=== PATIENT | male | born 1965 | race African-American/Black ===

== ENCOUNTER 2016-06-07 11:40 | Inpatient (IN) | payer OTHER ==
[2016-06-07] MEDS ORDERED: MENTHOL/PHENOL 1 EACH UD MM PRN (15:07)
[2016-06-07] MEDS ORDERED: NICOTINE POLACRILEX 4 MG GUM BUC PRN (15:07)
[2016-06-07] MEDS ORDERED: LOPERAMIDE HCL 2 MG CAPSULE PO PRN (15:07)
[2016-06-07] MEDS ORDERED: MAG HYDROX/AL HYDROX/SIMETH 30 ML UNIT-DOSE CUP PO PRN (15:07)
[2016-06-07] MEDS ORDERED: MAGNESIUM CITRATE 300 ML BOTTLE PO PRN (15:07)
[2016-06-07] MEDS ORDERED: guaiFENesin/D-METHORPHAN HB 10 ML UNIT-DOSE CUPS PO PRN (15:07)
[2016-06-07] MEDS ORDERED: MAGNESIUM HYDROX 2400MG/30ML ORAL SUSPENSION 30 ML CUP PO PRN (15:07)
[2016-06-07] MEDS ORDERED: ACETAMINOPHEN 325 MG TABLET (FP) PO PRN (15:07)
[2016-06-07] MEDS ORDERED: P-EPHED 60MG/TRIPROLIDI 2.5MG TABLET PO PRN (15:07)
--- NOTE | 2016-06-07 16:12 | HP ---
[facility]GARD[facility] Rehab Assess/Revision - Admission History Admitted to Rehab from: [facility] Date of Admission to Rehab: 06/07/16 - Findings Detox History & Physical reviewed: Yes Concur with findings: Yes Comments/Additional Findings: TRANSFERRED FROM DETOX TO REHAB ADMISSION PER PROTOCOL
[2016-06-07] MEDS: diphenhydrAMINE HCL 50 MG CAPSULE PO PRN (22:02)
[2016-06-07] MEDS: THIAMINE HCL 100 MG TABLET (FP) PO SCH (22:02)
[2016-06-08] MEDS: PRENATAL VITAMINS W/ FOLIC ACID TABLET (FP) PO SCH (10:13)
[2016-06-08] MEDS: NICOTINE 21 MG/24 HOURS TOPICAL PATCH TD SCH (10:14)
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
[2016-06-08] MEDS: THIAMINE HCL 100 MG TABLET (FP) PO SCH (21:29)
[2016-06-08] MEDS: MIRTAZAPINE 15 MG TABLET (FP) PO SCH (21:30)
[2016-06-09] MEDS: NICOTINE 21 MG/24 HOURS TOPICAL PATCH TD SCH (10:34)
[2016-06-09] MEDS: PRENATAL VITAMINS W/ FOLIC ACID TABLET (FP) PO SCH (10:34)
[2016-06-09] MEDS: THIAMINE HCL 100 MG TABLET (FP) PO SCH (21:42)
[2016-06-09] MEDS: diphenhydrAMINE HCL 50 MG CAPSULE PO PRN (21:42)
[2016-06-09] MEDS: MIRTAZAPINE 15 MG TABLET (FP) PO SCH (21:43)
[2016-06-10] MEDS: NICOTINE 21 MG/24 HOURS TOPICAL PATCH TD SCH (10:32)
[2016-06-10] MEDS: PRENATAL VITAMINS W/ FOLIC ACID TABLET (FP) PO SCH (10:32)
[2016-06-10] MEDS: THIAMINE HCL 100 MG TABLET (FP) PO SCH (21:52)
[2016-06-10] MEDS: diphenhydrAMINE HCL 50 MG CAPSULE PO PRN (21:52)
[2016-06-10] MEDS: MIRTAZAPINE 15 MG TABLET (FP) PO SCH (21:53)
[2016-06-11] MEDS: PRENATAL VITAMINS W/ FOLIC ACID TABLET (FP) PO SCH (09:53)
[2016-06-11] MEDS: NICOTINE 21 MG/24 HOURS TOPICAL PATCH TD SCH (09:53)
[2016-06-11] MEDS: THIAMINE HCL 100 MG TABLET (FP) PO SCH (21:23)
[2016-06-11] MEDS: diphenhydrAMINE HCL 50 MG CAPSULE PO PRN (21:23)
[2016-06-11] MEDS: MIRTAZAPINE 15 MG TABLET (FP) PO SCH (21:23)
[2016-06-12] MEDS: PRENATAL VITAMINS W/ FOLIC ACID TABLET (FP) PO SCH (10:15)
[2016-06-12] MEDS: NICOTINE 21 MG/24 HOURS TOPICAL PATCH TD SCH (10:16)
[2016-06-12] MEDS: MIRTAZAPINE 15 MG TABLET (FP) PO SCH (21:52)
[2016-06-12] MEDS: diphenhydrAMINE HCL 50 MG CAPSULE PO PRN (21:52)
[2016-06-12] MEDS: THIAMINE HCL 100 MG TABLET (FP) PO SCH (21:52)
[2016-06-13] MEDS: PRENATAL VITAMINS W/ FOLIC ACID TABLET (FP) PO SCH (10:39)
[2016-06-13] MEDS: NICOTINE 21 MG/24 HOURS TOPICAL PATCH TD SCH (10:39)
[2016-06-13] MEDS: MIRTAZAPINE 15 MG TABLET (FP) PO SCH (22:12)
[2016-06-13] MEDS: THIAMINE HCL 100 MG TABLET (FP) PO SCH (22:13)
[2016-06-13] MEDS: diphenhydrAMINE HCL 50 MG CAPSULE PO PRN (22:13)
[2016-06-14] MEDS: PRENATAL VITAMINS W/ FOLIC ACID TABLET (FP) PO SCH (10:02)
[2016-06-14] MEDS: NICOTINE 21 MG/24 HOURS TOPICAL PATCH TD SCH (10:03)
[2016-06-14] MEDS: diphenhydrAMINE HCL 50 MG CAPSULE PO PRN (21:45)
[2016-06-14] MEDS: THIAMINE HCL 100 MG TABLET (FP) PO SCH (21:45)
[2016-06-14] MEDS: MIRTAZAPINE 15 MG TABLET (FP) PO SCH (21:46)
[2016-06-15] MEDS: NICOTINE 21 MG/24 HOURS TOPICAL PATCH TD SCH (10:11)
[2016-06-15] MEDS: PRENATAL VITAMINS W/ FOLIC ACID TABLET (FP) PO SCH (10:11)
[2016-06-15] MEDS: THIAMINE HCL 100 MG TABLET (FP) PO SCH (21:35)
[2016-06-15] MEDS: MIRTAZAPINE 15 MG TABLET (FP) PO SCH (21:35)
[2016-06-15] MEDS: diphenhydrAMINE HCL 50 MG CAPSULE PO PRN (21:36)
[2016-06-16] MEDS: NICOTINE 21 MG/24 HOURS TOPICAL PATCH TD SCH (11:17)
[2016-06-16] MEDS: PRENATAL VITAMINS W/ FOLIC ACID TABLET (FP) PO SCH (11:17)
[2016-06-16] MEDS: diphenhydrAMINE HCL 50 MG CAPSULE PO PRN (21:21)
[2016-06-16] MEDS: MIRTAZAPINE 15 MG TABLET (FP) PO SCH (21:21)
[2016-06-16] MEDS: THIAMINE HCL 100 MG TABLET (FP) PO SCH (21:21)
[2016-06-16] MEDS: IBUPROFEN 400 MG TABLET (FP) PO PRN (21:22)
[2016-06-17] MEDS: NICOTINE 21 MG/24 HOURS TOPICAL PATCH TD SCH (09:55)
[2016-06-17] MEDS: PRENATAL VITAMINS W/ FOLIC ACID TABLET (FP) PO SCH (09:55)
[2016-06-17] MEDS: diphenhydrAMINE HCL 50 MG CAPSULE PO PRN (21:42)
[2016-06-17] MEDS: THIAMINE HCL 100 MG TABLET (FP) PO SCH (21:42)
[2016-06-17] MEDS: MIRTAZAPINE 15 MG TABLET (FP) PO SCH (21:42)
[2016-06-18] MEDS: PRENATAL VITAMINS W/ FOLIC ACID TABLET (FP) PO SCH (10:00)
[2016-06-18] MEDS: NICOTINE 21 MG/24 HOURS TOPICAL PATCH TD SCH (10:00)
[2016-06-18] MEDS: THIAMINE HCL 100 MG TABLET (FP) PO SCH (21:38)
[2016-06-18] MEDS: MIRTAZAPINE 15 MG TABLET (FP) PO SCH (21:38)
[2016-06-18] MEDS: diphenhydrAMINE HCL 50 MG CAPSULE PO PRN (21:38)
[2016-06-19] MEDS: NICOTINE 21 MG/24 HOURS TOPICAL PATCH TD SCH (10:19)
[2016-06-19] MEDS: PRENATAL VITAMINS W/ FOLIC ACID TABLET (FP) PO SCH (10:19)
[2016-06-19] MEDS: MIRTAZAPINE 15 MG TABLET (FP) PO SCH (21:49)
[2016-06-19] MEDS: THIAMINE HCL 100 MG TABLET (FP) PO SCH (21:49)
[2016-06-19] MEDS: diphenhydrAMINE HCL 50 MG CAPSULE PO PRN (21:49)
[2016-06-20] MEDS: PRENATAL VITAMINS W/ FOLIC ACID TABLET (FP) PO SCH (10:16)
[2016-06-20] MEDS: NICOTINE 21 MG/24 HOURS TOPICAL PATCH TD SCH (10:16)
[2016-06-20] MEDS: MIRTAZAPINE 15 MG TABLET (FP) PO SCH (21:12)
[2016-06-20] MEDS: diphenhydrAMINE HCL 50 MG CAPSULE PO PRN (21:12)
[2016-06-20] MEDS: THIAMINE HCL 100 MG TABLET (FP) PO SCH (21:12)
[2016-06-21] MEDS: NICOTINE 21 MG/24 HOURS TOPICAL PATCH TD SCH (10:13)
[2016-06-21] MEDS: PRENATAL VITAMINS W/ FOLIC ACID TABLET (FP) PO SCH (10:13)
[2016-06-21] MEDS: THIAMINE HCL 100 MG TABLET (FP) PO SCH (21:15)
[2016-06-21] MEDS: MIRTAZAPINE 15 MG TABLET (FP) PO SCH (21:15)
[2016-06-21] MEDS: diphenhydrAMINE HCL 50 MG CAPSULE PO PRN (21:16)
[2016-06-22] MEDS: NICOTINE 21 MG/24 HOURS TOPICAL PATCH TD SCH (10:04)
[2016-06-22] MEDS: PRENATAL VITAMINS W/ FOLIC ACID TABLET (FP) PO SCH (10:04)
[2016-06-22] MEDS: MIRTAZAPINE 15 MG TABLET (FP) PO SCH (21:19)
[2016-06-22] MEDS: THIAMINE HCL 100 MG TABLET (FP) PO SCH (21:20)
[2016-06-22] MEDS: diphenhydrAMINE HCL 50 MG CAPSULE PO PRN (21:20)
[2016-06-23] MEDS: PRENATAL VITAMINS W/ FOLIC ACID TABLET (FP) PO SCH (10:07)
[2016-06-23] MEDS: NICOTINE 21 MG/24 HOURS TOPICAL PATCH TD SCH (10:07)
[2016-06-23] MEDS: MIRTAZAPINE 15 MG TABLET (FP) PO SCH (21:24)
[2016-06-23] MEDS: diphenhydrAMINE HCL 50 MG CAPSULE PO PRN (21:24)
[2016-06-23] MEDS: THIAMINE HCL 100 MG TABLET (FP) PO SCH (21:24)
[2016-06-24] MEDS: PRENATAL VITAMINS W/ FOLIC ACID TABLET (FP) PO SCH (10:27)
[2016-06-24] MEDS: NICOTINE 21 MG/24 HOURS TOPICAL PATCH TD SCH (10:27)
[2016-06-24] MEDS: IBUPROFEN 400 MG TABLET (FP) PO PRN (12:27)
[2016-06-24] MEDS: MIRTAZAPINE 15 MG TABLET (FP) PO SCH (21:11)
[2016-06-24] MEDS: diphenhydrAMINE HCL 50 MG CAPSULE PO PRN (21:11)
[2016-06-24] MEDS: THIAMINE HCL 100 MG TABLET (FP) PO SCH (21:12)
[2016-06-25] MEDS: PRENATAL VITAMINS W/ FOLIC ACID TABLET (FP) PO SCH (10:00)
[2016-06-25] MEDS: NICOTINE 21 MG/24 HOURS TOPICAL PATCH TD SCH (10:00)
[2016-06-25] MEDS: diphenhydrAMINE HCL 50 MG CAPSULE PO PRN (21:25)
[2016-06-25] MEDS: MIRTAZAPINE 15 MG TABLET (FP) PO SCH (21:25)
[2016-06-25] MEDS: THIAMINE HCL 100 MG TABLET (FP) PO SCH (21:25)
[2016-06-26 07:54] VITALS: PULSE 82
[2016-06-26] MEDS: PRENATAL VITAMINS W/ FOLIC ACID TABLET (FP) PO SCH (10:14)
[2016-06-26] MEDS: NICOTINE 21 MG/24 HOURS TOPICAL PATCH TD SCH (10:14)
[2016-06-26] MEDS: diphenhydrAMINE HCL 50 MG CAPSULE PO PRN (21:50)
[2016-06-26] MEDS: THIAMINE HCL 100 MG TABLET (FP) PO SCH (21:50)
[2016-06-26] MEDS: MIRTAZAPINE 15 MG TABLET (FP) PO SCH (21:51)
[2016-06-27 08:12] VITALS: BP 123/88; TEMP 97.5
[2016-06-27] MEDS: PRENATAL VITAMINS W/ FOLIC ACID TABLET (FP) PO SCH (09:23)
[2016-06-27] MEDS: NICOTINE 21 MG/24 HOURS TOPICAL PATCH TD SCH (09:23)
--- NOTE | 2016-06-27 10:55 | PN ---
Psychiatric Progress Note Vital Signs: Vital Signs Period Temp Pulse Resp BP Sys/Vaughn Pulse Ox Last 24 Hr 97.5 F 82 18-18 123/88 Date of Session: 06/27/16 Chief Complaint:: Psychiatrist Discharge Note(Early discharge) HPI: Patient addressingAlcohol and Cannabis Dependence comorbid with Nicotine Dependence and Alcohol-Induced Sleep Disorder ROS: Legally blind Current Medications: Active Medications Generic Name Dose Route Start Last Admin Trade Name Freq PRN Reason Stop Dose Admin Acetaminophen 650 mg 06/07/16 15:07 Tylenol - PO Q4H PRN FEVER OR PAIN Al Hydroxide/Mg Hydroxide 30 ml 06/07/16 15:07 Mylanta Oral Suspension - PO Q6H PRN DYSPEPSIA Diphenhydramine HCl 50 mg 06/07/16 15:07 06/26/16 21:50 Benadryl - PO 50 mg HSMR1 PRN Administration FOR ITCHING Eucalyptus/Menthol/Phenol/Sorbitol 1 each 06/07/16 15:07 Cepastat Lozenge - MM Q4H PRN SORE THROAT Guaifenesin 10 ml 06/07/16 15:07 Robitussin Dm - PO Q6H PRN COUGH Ibuprofen 400 mg 06/07/16 15:07 06/24/16 12:27 Motrin - PO 400 mg Q6H PRN Administration PAIN Loperamide HCl 4 mg 06/07/16 15:07 Imodium - PO Q6H PRN DIARRHEA Magnesium Hydroxide 30 ml 06/07/16 15:07 Milk Of Magnesia - PO DAILY PRN CONSTIPATION Mirtazapine 15 mg 06/08/16 22:00 06/26/16 21:51 Remeron - PO 15 mg HS STEFANIE Administration Nicotine 21 mg 06/08/16 10:00 06/27/16 09:23 Nicoderm Patch - TD Not Given DAILY STEFANIE Nicotine Polacrilex 4 mg 06/07/16 15:07 Nicorette Gum - BUC Q2H PRN NICOTINE REPLACEMENT RX Multivit/Folic Acid/Iron 1 tab 06/08/16 10:00 06/27/16 09:23 Vitamins ([facility]) - PO 1 tab DAILY STEFANIE Administration Pseudoephedrine/Triprolidine 1 combo 06/07/16 15:07 Actifed - PO TID PRN NASAL CONGESTION Thiamine HCl 100 mg 06/07/16 22:00 03/06/17 21:50 Vitamin B1 - PO 100 mg HS STEFANIE Administration Current Side Effect: No Lab tests ordered: Yes Lab tests reviewed: Yes Provider note:: Patient has completed this program today. He has partially met his treatment goals and will continue to address his issues in outpatient treatment at [facility]. Told press writer that from his participation in this program, he has learned the importance of establising a sober network in order to maintain abstinence. He responded well to Remeron 15 mg po HS. Script for 30 days supply of that medicationis electronically transmitted to [facility] at [address] [place] [address]. He is stable for discharge today Total face to face time:: 35 Mental Status Exam - Mental Status Exam Alert and Oriented to: Time, Place, Person Cognitive Function: Fair Patient Appearance: Well Groomed Mood: Hopeful, Euthymic Affect: Appropriate Patient Behavior: Cooperative Speech Pattern: Clear Voice Loudness: Normal Thought Process: Intact Thought Disorder: Not Present Hallucinations: Denies Suicidal Ideation: Denies Homicidal Ideation: Denies Insight/Judgement: Fair Sleep: Fair Appetite: Good Muscle strength/Tone: Normal Gait/Station: Normal Psychiatric Treatment Plan - Problem List (1) Alcohol dependence Current Visit: Yes (2) Cannabis dependence, uncomplicated Current Visit: No (3) Nicotine dependence Current Visit: No Qualifiers: Nicotine product type: cigarettes Substance use status: uncomplicated Qualified Code(s): F17.210 - Nicotine dependence, cigarettes, uncomplicated (4) Alcohol-induced sleep disorder Current Visit: Yes (5) Legally blind Current Visit: No Initial treatment plan: Patient is discharged today and referred to [facility] for outpatient treatment
== END 2016-06-27 11:45 | disposition home or self-care (01) | DRG 772 ==
LOC: YASAS 11:40 → Y3W 11:41
PROVIDERS: ADMIT Psychiatry & Neurology Psychiatry; ATTEND Psychiatry & Neurology Psychiatry
PROC: HZ42ZZZ Group Counseling for Substance Abuse Treatment, Cognitive-Behavioral (ICD-10-PCS; principal; 2016-06-27)
DX: F10.20 Alcohol dependence, uncomplicated (principal); F12.20 Cannabis dependence, uncomplicated; F17.210 Nicotine dependence, cigarettes, uncomplicated; F19.282 Other psychoactive substance dependence with psychoactive substance-induced sleep disorder; H54.8 Legal blindness, as defined in USA